=== PATIENT | female | born 1965 | race Caucasian/White ===

== ENCOUNTER 2017-10-01 09:46 | Emergency (ER) | payer SELFPAY | END 2017-10-01 10:00 | disposition short-term general hospital (02) | LOC: FSED 09:46 | DX: R52 Pain, unspecified (principal) ==

== ENCOUNTER 2019-01-08 01:12 | Emergency (ER) | payer SELFPAY ==
[~2019-01-08] VITALS: Ht 167.6 cm; Wt 70.3 kg
--- OUTSIDE RECORDS SUMMARY | 2019-01-08 01:15 | XMS REPORT | Continuity of Care Document ---
Author Author [facility] Interface Address Unknown Phone Unavailable Problems Problem Status Onset Date Classification Date Reported Comments Source Acute sinusitis 06/26/2017 Diagnosis 06/26/2017 [facility] Medications Medication Details Route Status Patient Instructions Ordering Provider Order Date Source Aspirin 81 MG Delayed Release Oral Tablet Adult Low Dose Aspirin 81 mg tablet,delayed release Take 1 tablet every day by oral route. Active [facility] Amoxicillin 875 MG / Clavulanate 125 MG Oral Tablet [Augmentin] Augmentin 875 mg-125 mg tablet Take 1 tablet every 12 hours by oral route for 10 days. Active [facility] olopatadine 1 MG/ML Ophthalmic Solution olopatadine 0.1 % eye drops Active [facility] Estrogens, Conjugated (HALF-WAY) 0.9 MG Oral Tablet [Premarin] Premarin 0.9 mg tablet Active [facility] cariprazine 6 MG Oral Capsule [Vraylar] Vraylar 6 mg capsule Take 1 capsule every day by oral route. Active [facility] Allergies, Adverse Reactions, Alerts Substance Category Reaction Severity Reaction type Status Date Reported Comments Source Immunizations Immunization Date Given Site Status Last Updated Comments Source Results Order Name Results Value Reference Range Date Interpretation Comments Source Vital Signs Vital Sign Value Date Comments Source Diastolic (mm Hg) 74 06/26/2017 [facility] Height 66 06/26/2017 [facility] Systolic (mm Hg) 116 06/26/2017 [facility] Weight 165 06/26/2017 [facility] Encounters Location Location Details Encounter Type Encounter Number Reason For Visit Attending Provider ADM Date DC Date Status Source [place] - [facility] - [id number] Franco PA-C: [id number] [place] [address], Ph. [phone] [id number] Zita Franco 06/26/2017 [facility] Procedures Procedure Code Date Perfomer Comments Source Hysterectomy [facility]
--- OUTSIDE RECORDS SUMMARY | 2019-01-08 01:15 | XMS REPORT | Encounter Summary ---
Author Organization Unknown Address [address] [place] [address] Phone [phone] Reason for Visit Medical Complaint Instructions 1. Acute sinusitis Augmentin 875 mg-125 mg tablet Discussion Note: None recorded. Patient educational handouts: No information available. Plan of Care Patient Instructions Recommend taking sudafed as needed for sinus pressure and ear pain. Use prescription nasal spray you have at home Reminders Provider Appointments None recorded. Lab None recorded. Referral None recorded. Procedures None recorded. Surgeries None recorded. Imaging None recorded. Medications Name Start Date Adult Low Dose Aspirin 81 mg tablet,delayed release Take 1 tablet every day by oral route. Augmentin 875 mg-125 mg tablet Take 1 tablet every 12 hours by oral route for 10 days. olopatadine 0.1 % eye drops Premarin 0.9 mg tablet Vraylar 6 mg capsule Take 1 capsule every day by oral route. Medications Administered None recorded. Vitals Height Weight BMI Blood Pressure 5 ft 6 in 165 lbs 26.6 kg/m2 116/74 mm[Hg] Lab Results None recorded. Allergies Code Code System Name Reaction Severity Status Onset NKDA Problems None recorded. Procedures Date Name Performed by Hysterectomy Information not available Vaccine List None recorded. Social History Smoking Status Current Every Day Smoker Past Encounters 06/26/2017 Acute Sinusitis Zita Franco PA-C: [id number] [place] [address], Ph. History of Present Illness Weovw-[id number]-Akjowpv Reported By: Patient HPI: Location: head/sinuses. Quality: nasal/sinus congestion. Duration: 7days. Severity: moderate. Context: no sick contacts, no foreign travel, non-smoker. Modifying factors: ; tylenol cold and sinus. Associated Symptoms: no sputum production, no shortness of breath, no wheezing, no sweats, no sore throat, no vomiting, no diarrhea, no rash, no fever, no muscle aches; itching in ears, eyes watery, aches Review of Systems Basic Reported By: Patient Constitutional: Constitutional: no fever Eyes: Eyes: no eye complaints Atiu-Wqwz-Ffvyy-Throat: Ears: ear pain. Nose: nose/sinus problems. Mouth/Throat: no sore throat Cardiovascular: Cardiovascular: no chest pain, no shortness of breath, no known heart murmur Respiratory: Respiratory: no cough, no wheezing, no shortness of breath Musculoskeletal: Musculoskeletal: no muscle aches Skin: Skin: no rashes Neurologic: Neurologic: no dizziness, no headaches Physical Exam Adult Basic Reported By: Patient Constitutional: General Appearance: healthy-appearing, well-nourished, well-developed. Level of Distress: NAD. Ambulation: ambulating normally Psychiatric: Mental Status: active and alert. Orientation: to time, to place, to person Eyes: Lids and Conjunctivae: non-injected, no discharge Fsh-Ltyk-Ncdng-Throat: Ears: no lesions on external ear, no outer ear tenderness, EACs clear, TM bulging. Nose: no lesions on external nose, no septal deviation, nasal obstruction, sinus tenderness, nasal discharge. Lips, Teeth, and Gums: no mouth or lip ulcers, no bleeding gums. Oropharynx: moist mucous membranes, no exudates, erythema Neck: Neck: supple, trachea midline, no masses, FROM. Lymph Nodes: no cervical LAD Lungs: Respiratory effort: no dyspnea, no tachypnea, no use of accessory muscles, no intercostal retractions. Auscultation: breath sounds normal Cardiovascular: Heart Auscultation: RRR, no murmurs
== END 2019-01-08 02:20 | disposition home or self-care (01) ==
LOC: FSED 01:12
DX: F30.10 Manic episode without psychotic symptoms, unspecified (principal)
CPT/HCPCS: 99283